=== PATIENT | male | born 2000 | race Two or more races ===

== ENCOUNTER 2025-02-18 21:03 | Emergency (ER) | payer OTHER ==
[~2025-02-18] VITALS: Ht 177.8 cm; Wt 68.0 kg
[2025-02-18] MEDS ORDERED: ZOLOFT25 MG (21:11)
[2025-02-18] MEDS ORDERED: METOCLOPRAMIDE HCL 5 MG/ML VIAL IV ONE (22:00)
[2025-02-18] MEDS ORDERED: 0.9 % SODIUM CHLORIDE 1,000 ML IV ONE (22:00)
[2025-02-18] MEDS ORDERED: ONDANSETRON HCL 2 MG/ML VIAL IV ONE (22:00)
[2025-02-18] MEDS ORDERED: KETOROLAC TROMETHAMINE 30 MG VIAL IU ONE (22:00)
[2025-02-18] MEDS ORDERED: METOCLOPRAMIDE HCL 5 MG/ML VIAL ONE (23:21)
[2025-02-18] MEDS ORDERED: KETOROLAC TROMETHAMINE 30 MG VIAL ONE (23:21)
[2025-02-18] MEDS ORDERED: ONDANSETRON HCL 2 MG/ML VIAL ONE (23:21)
[2025-02-19 00:42] LABS: BASO % 0.6 % (0.1-1.2); EOS # 0.10 (0.04-0.54); EOS % 1.5 % (0.7-7.0); LYMPH # 1.76 (1.18-3.74); LYMPH % 26.3 % (19.3-53.1); MEAN PLATELET VOLUME 9.60 fl (9.4-12.4); MONO # 0.49 (0.24-0.82); MONO % 7.3 % (4.7-12.5); NEUT # 4.28 (1.56-6.13); NEUT % 64.2 % (34.0-71.1); RED CELL DISTRIBUTION WIDTH 11.8 % (11.6-14.4)
[2025-02-19 01:13] LABS: ALT/SGPT 18.0 U/L (12-78); AST/SGOT 16.0 U/L (15-37); BILIRUBIN TOTAL 1.58 mg/dL (0.3-1.2); BUN CREA RATIO 12.0 (7.0-25.0); GFR 143.26; GLOBULINA 3.5 G/DL (2.4-3.5); GLUCOSE FASTING 103.0 mg/dL (65-100); OSMOLALITY SERUM 276.0 MOSM/KG (275-295)
[2025-02-19 01:28] LABS: CREATININE SERUM 0.68 mg/dL (0.70-1.30)
[2025-02-19] MEDS ORDERED: ONDANSETRON ODT4 MG PO (03:06)
[2025-02-19] MEDS ORDERED: PEPCID AC20 MG PO (03:06)
== END 2025-02-19 04:27 | disposition home or self-care (01) ==
LOC: ER 21:04
PROVIDERS: Behavior Technician
DX: K52.89 Other specified noninfective gastroenteritis and colitis (principal); E86.0 Dehydration; B34.9 Viral infection, unspecified